=== PATIENT | female | born 1995 | race Hispanic/Latino ===

== ENCOUNTER 2018-12-23 11:16 | Emergency (ER) | payer OTHER ==
[2018-12-23 11:23] VITALS: BP 131/75; PULSE 70; RESP 18; TEMP 99.1; O2SAT 100
[2018-12-23] MEDS ORDERED: Fluorescein 1 mg Ophthalmic Strip ONE (12:17)
--- NOTE | 2018-12-23 12:44 | ED PDOC ---
HPI: Eye Injury/Pain Time Seen by Provider: 12/23/18 12:19 Chief Complaint (Nursing): Eye Problem Chief Complaint (Provider): eye irritation History Per: Patient History/Exam Limitations: no limitations Onset/Duration Of Symptoms: Hrs (10:45 today) Current Symptoms Are (Timing): Still Present Wears Contact Lens?: No Associated Symptoms: Other (blurry vision) Additional Complaint(s): Nicole Mayfield is a 23 year old female, with no significant past medical history, who presents to the emergency department for evaluation of left eye irritation after Clorox bleach went into her eye today at 10:45. Patient was seen at urgent care afterwards where she had her eye irrigated. Patient notes her vision is more blurry now. She doesn't wear contact lens. She denies any fever, chills, dizziness, headache or other medical complaints. PMD: Clinic Past Medical History Reviewed: Historical Data, Nursing Documentation, Vital Signs Vital Signs: Last Vital Signs Temp 99.1 F 12/23/18 11:22 Pulse 70 12/23/18 11:22 Resp 18 12/23/18 11:22 BP 131/75 12/23/18 11:22 Pulse Ox 100 12/23/18 11:22 - Medical History PMH: No Chronic Diseases - Surgical History Surgical History: No Surg Hx - Family History Family History: States: Unknown Family Hx - Home Medications Home Medications: Ambulatory Orders Medication Instructions Recorded Erythromycin 0.5% [Erythromycin] 0.5 in OS BID #1 tube 12/23/18 - Allergies Allergies/Adverse Reactions: Allergies Allergy/AdvReac Type Severity Reaction Status Date / Time No Known Allergies Allergy Verified 12/23/18 11:22 Review of Systems ROS Statement: Except As Marked, All Systems Reviewed And Found Negative Constitutional: Negative for: Fever, Chills Eyes: Positive for: Vision Change (blurry vision), Redness (left eye) Neurological: Negative for: Headache, Dizziness Physical Exam - Reviewed Nursing Documentation Reviewed: Yes Vital Signs Reviewed: Yes - Physical Exam Appears: Positive for: No Acute Distress Head Exam: Positive for: ATRAUMATIC, NORMAL INSPECTION, NORMOCEPHALIC Skin: Positive for: Normal Color, Warm, Dry Eye Exam: Positive for: EOMI, PERRL, Conjunctival injection (left eye mild), Other (No fluorescein uptake. ) ENT: Positive for: Normal ENT Inspection Neck: Positive for: Normal, Painless ROM, Supple Cardiovascular/Chest: Positive for: Regular Rate, Rhythm. Negative for: Murmur Respiratory: Positive for: Normal Breath Sounds. Negative for: Respiratory Distress Extremity: Positive for: Normal ROM (upper and lower extremities). Negative for: Deformity Neurologic/Psych: Positive for: Alert, Oriented - ECG O2 Sat by Pulse Oximetry: 100 (RA) Pulse Ox Interpretation: Normal Medical Decision Making Medical Decision Making: Time: 12:19 Initial Impression: Chemical exposure to eye Initial Plan: --Erythromycin 0.5% 1 applic --Reevaluation 12:35 pH noted at 7. Left eye was irrigated 2 liters normal saline using aries lens. erythromycin ointment applied d/w Dr. Dennis. He can see patient tomorrow at 10am. 13:51 Upon provider reevaluation patient is feeling better, is medically stable, and requires no further treatment in the ED at this time. Patient will be discharged home with Rx for Erythromycin. Counseling was provided and all questions were answered regarding diagnosis and need for follow up with Dr. Dennis, criminal justice department chair, tomorrow. There is agreement to discharge plan. Return if symptoms persist or worsen. Patient has made appointment today at 3pm with opthalmology in [place]. ----- Scribe Attestation: Documented by Alvarado Rodriguez, acting as a scribe for Antoni Edward PA-C. Provider Scribe Attestation: All medical record entries made by the Scribe were at my direction and personally dictated by me. I have reviewed the chart and agree that the record accurately reflects my personal performance of the history, physical exam, medical decision making, and the department course for this patient. I have also personally directed, reviewed, and agree with the discharge instructions and disposition. Disposition - Clinical Impression Clinical Impression: Chemical exposure of eye - Patient ED Disposition Is Patient to be Admitted: No - Disposition Referrals: Mike Dennis MD [Staff Provider] - Disposition: Routine/Home Disposition Time: 13:51 Condition: FAIR Additional Instructions: PLEASE F/U WITH EYE DR TOMORROW AT 10AM DR. DENNIS Prescriptions: Erythromycin 0.5% [Erythromycin] 0.5 in OS BID #1 tube Instructions: Chemical Eye Injury (DC) Forms: [facility] ED School/Work Excuse
[2018-12-23] MEDS ORDERED: Erythromycin 0.5% Ophth Oint 1 APPLIC/3.5 G OS STA (13:16)
== END 2018-12-23 14:14 | disposition home or self-care (01) ==
LOC: H.ER 11:16
DX: Z77.098 Contact with and (suspected) exposure to other hazardous, chiefly nonmedicinal, chemicals (principal)